=== PATIENT | male | born 1950 | race Caucasian/White ===

== ENCOUNTER 2016-08-12 04:27 | Inpatient (IN) | payer MEDICARE ==
[2016-08-12] MEDS ORDERED: Ondansetron 4 MG/2 ML SDV IVPUSH ONE (05:00)
[2016-08-12] MEDS ORDERED: Sodium Chloride 0.9% 1,000 ML IV SCH (05:00)
[2016-08-12] MEDS ORDERED: Piperacillin/Tazobactam 4.5 GM in Sodium Chloride 0.9% 100 ML IV STA (07:04)
[2016-08-12] MEDS ORDERED: Lactated Ringers 1,000 ML IV SCH (07:15)
[2016-08-12] MEDS ORDERED: HYDROmorphone 1 MG/ML Syringe IVPUSH ONE (07:16)
--- NOTE | 2016-08-12 07:16 | EDM.PDOC ---
ED HPI GENERAL MEDICAL PROBLEM - General Chief Complaint: General Stated Complaint: VOMITING Time Seen by Provider: 08/12/16 06:20 Source of Information: Reports: Patient History Limitations: Reports: No Limitations - History of Present Illness INITIAL COMMENTS - FREE TEXT/NARRATIVE: History of present illness: [65-year-old male presenting with nausea and vomiting and abdominal pain that started on Wednesday. He's not been to keep much down since been trying to keep Jell-O down. Subjectively he may have had some fever and chills. Abdominal pain is primarily epigastric extremity to his vomiting. He has no constipation or diarrhea, cold symptoms. ] Review of systems: As per history of present illness and below otherwise all systems reviewed and negative. Past medical history: As per history of present illness and as reviewed below otherwise noncontributory. Surgical history: As per history of present illness and as reviewed below otherwise noncontributory. Social history: No reported history of drug or alcohol abuse. Family history: As per history of present illness and as reviewed below otherwise noncontributory. Physical exam: HEENT: Atraumatic, normocephalic, pupils reactive, negative for conjunctival pallor or scleral icterus, mucous membranes moist, throat clear, neck supple, nontender, trachea midline. Lungs: Clear to auscultation, breath sounds equal bilaterally, chest nontender. Heart: S1S2, regular, negative for clicks, rubs, or JVD. Abdomen: Soft, nondistended, he does have epigastric pain on palpation but also right lower quadrant pain which seems to be more severe than his epigastric although he primarily complains of epigastric pain.. Negative for masses or hepatosplenomegaly. Negative for costovertebral tenderness. Pelvis: Stable nontender. Genitourinary: Deferred. Rectal: Deferred. Extremities: Atraumatic, negative for cords or calf pain. Neurovascular unremarkable. Neuro: Awake, alert, oriented. Cranial nerves II through XII unremarkable. Cerebellum unremarkable. Motor and sensory unremarkable throughout. Exam nonfocal. Diagnostics: [Abdominal pelvic CT is showing a retrocecal appendicitis. He does have an elevated white count with a left shift and he spiked a fever while here I did do blood cultures prior to knowing the results of the CT.] Therapeutics: [Patient is receiving IV fluids and I'm giving him IV Zosyn] Impression: [Acute appendicitis] Plan: [Dr. Hernandez has been contacted and is coming in for surgical management.] Definitive disposition and diagnosis as appropriate pending reevaluation and review of above. Abdomen Pain Score (Numeric/FACES): 3 - Related Data Allergies Allergy/AdvReac Type Severity Reaction Status Date / Time No Known Allergies Allergy Verified 08/12/16 04:46 Home Meds: Home Meds Metoprolol Succinate 100 mg PO BID 08/12/16 [History] Multivitamin [Multi-Vitamin Daily] 1 tab PO DAILY 08/12/16 [History] Past Medical History Cardiovascular History: Reports: Hypertension - Infectious Disease History Infectious Disease History: Reports: Chicken Pox - Past Surgical History Musculoskeletal Surgical History: Reports: Hip Replacement Dermatological Surgical History: Reports: Skin Biopsy Social & Family History - Tobacco Use Smoking Status *Q: Never Smoker - Caffeine Use Caffeine Use: Reports: Soda, Tea - Recreational Drug Use Recreational Drug Use: No ED ROS GENERAL - Review of Systems Review Of Systems: ROS reveals no pertinent complaints other than HPI. ED EXAM, GENERAL - Physical Exam Exam: See Below Course - Vital Signs Last Recorded V/S: Last Vital Signs Temp 38.7 C H 08/12/16 06:08 Pulse 100 08/12/16 06:08 Resp 16 08/12/16 06:08 BP 110/63 08/12/16 06:08 Pulse Ox 91 L 08/12/16 06:08 - Orders/Labs/Meds Orders: Active Orders 24 hr Category Date Time Status Abdomen Pelvis wo Cont [CT] Stat Exams 08/12/16 06:21 Taken Chest 1V Frontal [CR] Stat Exams 08/12/16 06:21 Taken CULTURE BLOOD [BC] Stat Lab 08/12/16 06:30 Received CULTURE BLOOD [BC] Stat Lab 08/12/16 06:40 Received LACTIC ACID [CHEM] Stat Lab 08/12/16 06:30 Received UA W/MICROSCOPIC [URIN] Stat Lab 08/12/16 04:56 Uncollected Lactated Ringers [Ringers, Lactated] 1,000 ml Med 08/12/16 07:15 Ordered IV ASDIRECTED Piperacillin/Tazobactam [Zosyn] 4.5 gm Med 08/12/16 07:04 Ordered Sodium Chloride 0.9% [Normal Saline] 100 ml IV NOW Medication Orders Piperacillin Sod/Tazobactam (Sod 4.5 gm/ Sodium Chloride) 100 mls @ 200 mls/hr IV NOW STA Stop: 08/12/16 07:33 Lactated Ringer's (Ringers, Lactated) 1,000 mls @ 250 mls/hr IV ASDIRECTED [facility] Labs: Laboratory Tests 08/12/16 08/12/16 Range/Units 04:56 04:56 WBC 14.4 H (4.5-11.0) K/uL RBC 5.07 (4.30-5.90) M/uL Hgb 16.1 H (12.0-15.0) g/dL Hct 48.0 (40.0-54.0) % MCV 95 (80-98) fL MCH 32 H (27-31) pg MCHC 34 (32-36) % Plt Count 64 L (150-400) K/uL Add Manual Diff Yes Neutrophils % (Manual) 74 H (36-66) % Band Neutrophils % 23 H (5-11) % Lymphocytes % (Manual) 1 L (24-44) % Monocytes % (Manual) 2 (2-6) % Sodium 139 L (140-148) mmol/L Potassium 3.5 L (3.6-5.2) mmol/L Chloride 103 (100-108) mmol/L Carbon Dioxide 27 (21-32) mmol/L Anion Gap 12.5 (5.0-14.0) mmol/L BUN 33 H (7-18) mg/dL Creatinine 2.0 H (0.8-1.3) mg/dL Est Cr Clr Drug Dosing 42.81 mL/min Estimated GFR (MDRD) 34 L (>60) Glucose 98 (74-106) mg/dL Calcium 8.8 (8.5-10.1) mg/dL Total Bilirubin 3.4 H (0.2-1.0) mg/dL AST 41 H (15-37) U/L ALT 59 (12-78) U/L Alkaline Phosphatase 162 H (46-116) U/L Total Protein 6.5 (6.4-8.2) g/dL Albumin 3.1 L (3.4-5.0) g/dL Globulin 3.4 (2.3-3.5) g/dL Albumin/Globulin Ratio 0.9 L (1.2-2.2) Meds: Medications Generic Name Dose Route Start Last Admin Trade Name Freq PRN Reason Stop Dose Admin Piperacillin Sod/Tazobactam 100 mls @ 200 mls/hr 08/12/16 07:04 Sod 4.5 gm/ Sodium Chloride IV 08/12/16 07:33 NOW STA Lactated Ringer's 1,000 mls @ 250 mls/hr 08/12/16 07:15 Ringers, Lactated IV ASDIRECTED [facility] Discontinued Medications Generic Name Dose Route Start Last Admin Trade Name Freq PRN Reason Stop Dose Admin Sodium Chloride 1,000 mls @ 500 mls/hr 08/12/16 05:00 08/12/16 05:03 Normal Saline IV 500 mls/hr ASDIRECTED [facility] Administration Ondansetron HCl 4 mg 08/12/16 05:00 08/12/16 05:04 Zofran IVPUSH 08/12/16 05:01 4 mg ONETIME ONE Administration Departure - Departure Time of Disposition: 07:15 Disposition: Admitted As Inpatient 66 Condition: Fair Clinical Impression: Acute appendicitis Qualifiers: Acute appendicitis type: with localized peritonitis Qualified Code(s): K35.3 - Acute appendicitis with localized peritonitis - Discharge Information Forms: ED Department Discharge - My Orders Last 24 Hours: My Active Orders 08/12/16 04:56 UA W/MICROSCOPIC [URIN] Stat 08/12/16 06:21 Abdomen Pelvis wo Cont [CT] Stat Chest 1V Frontal [CR] Stat 08/12/16 06:30 CULTURE BLOOD [BC] Stat LACTIC ACID [CHEM] Stat 08/12/16 06:40 CULTURE BLOOD [BC] Stat 08/12/16 07:04 Piperacillin/Tazobactam [Zosyn] 4.5 gm Sodium Chloride 0.9% [Normal Saline] 100 ml IV NOW 08/12/16 07:15 Lactated Ringers [Ringers, Lactated] 1,000 ml IV ASDIRECTED - Assessment/Plan Last 24 Hours: My Active Orders 08/12/16 04:56 UA W/MICROSCOPIC [URIN] Stat 08/12/16 06:21 Abdomen Pelvis wo Cont [CT] Stat Chest 1V Frontal [CR] Stat 08/12/16 06:30 CULTURE BLOOD [BC] Stat LACTIC ACID [CHEM] Stat 08/12/16 06:40 CULTURE BLOOD [BC] Stat 08/12/16 07:04 Piperacillin/Tazobactam [Zosyn] 4.5 gm Sodium Chloride 0.9% [Normal Saline] 100 ml IV NOW 08/12/16 07:15 Lactated Ringers [Ringers, Lactated] 1,000 ml IV ASDIRECTED
[2016-08-12] MEDS ORDERED: Piperacillin/Tazobactam 4.5 GM in Sodium Chloride 0.9% 100 ML IV ONE (07:30)
[2016-08-12] MEDS ORDERED: Metoprolol Succinate 50 MG Tab.ER PO ONE ×2 (08:23→09:22)
[2016-08-12] MEDS ORDERED: Bupivacaine 0.5% 50 ML MDV ONE (08:46)
[2016-08-12] MEDS ORDERED: Lidocaine 1% with EPINEPHrine 1:100,000 50 ML MDV ONE (08:46)
[2016-08-12] MEDS ORDERED: HYDROmorphone/Normal Saline 15 MG/30 ML PCA IV PRN (08:57)
[2016-08-12] MEDS ORDERED: Naloxone 0.4 MG/ML SDV IVPUSH PRN (08:57)
[2016-08-12] MEDS ORDERED: Metoprolol Tartrate 50 MG Tab PO ONE (09:06)
--- NOTE | 2016-08-12 09:14 | CR ---
Chest 1V Frontal HISTORY: fever COMPARISON: None FINDINGS: Lungs appear clear and normally aerated. Cardiomediastinal silhouette is within normal limits. No va scular redistribution or pleural fluid can be seen. There are small anterolateral osteoids along the thoracic spine. IMPRESSION: No acute cardiopulmonary disease is identified.
[2016-08-12] MEDS ORDERED: fentaNYL 250 MCG/5 ML SDV ONE (09:20)
[2016-08-12] MEDS ORDERED: Ondansetron 4 MG/2 ML SDV ONE (09:21)
[2016-08-12] MEDS ORDERED: Neostigmine Methylsulfate 1 MG/ML 5 ML Syringe ONE (09:21)
[2016-08-12] MEDS ORDERED: Dexamethasone 4 MG/ML SDV ONE (09:21)
[2016-08-12] MEDS ORDERED: Propofol 200 MG/20 ML SDV ONE (09:21)
[2016-08-12] MEDS ORDERED: Rocuronium 50 MG/5 ML Vial ONE (09:21)
[2016-08-12] MEDS ORDERED: Lactated Ringers 1,000 ML ONE (09:53)
[2016-08-12] MEDS ORDERED: fentaNYL 100 MCG/2 ML SDV ONE (10:29)
[2016-08-12] MEDS: D5 1/2 NS w/ 20 mEq/L KCl 1,000 ML IV SCH ×2 (13:23→19:39)
[2016-08-12] MEDS: Piperacillin/Tazobactam/Dext 3.375 GM in Premix Bag 1 BAG IV SCH ×2 (14:48→21:44)
[2016-08-12] MEDS: Ondansetron 4 MG/2 ML SDV IVPUSH PRN (17:53)
--- NOTE | 2016-08-12 18:25 | PCM.CONS ---
H&P History of Present Illness - General Date of Service: 08/12/16 Source of Information: Patient, Family, Provider History Limitations: Reports: No Limitations - History of Present Illness Initial Comments - Free Text/Narative: Tuan presented to the emergency room this morning with 2 days of abdominal pain, vomiting and diarrhea as well as new confusion as of the morning of admission. I was asked to see him by DR Alvarenga Re: Sepsis management. Tuan reports initial onset of abdominal pain 2 days prior to presentation. This was a central abdominal pain that was followed shortly thereafter by diarrhea and vomiting. He suspected that he had food poisoning and did not immediately seek intervention. This cramping abdominal pain initially was mild but progressed to the point that it was moderate or severe. He did not take anything at home. He lost his appetite. No obvious triggers to make the pain worse and it seemed to come and go. He had subjective fevers and chills at home. This morning his noted that he was weak, diaphoretic and confused and drug him in for further evaluation. Workup in the emergency room suggested acute appendicitis with evidence for sepsis. He was taken to the operating room for surgical intervention. Abdomen Pain Score (Numeric/FACES): 7 - Related Data Allergies/Adverse Reactions: Allergies Allergy/AdvReac Type Severity Reaction Status Date / Time No Known Allergies Allergy Verified 08/12/16 04:46 Home Medications: Home Meds Metoprolol Succinate 100 mg PO BID 08/12/16 [History] Multivitamin [Multi-Vitamin Daily] 1 tab PO DAILY 08/12/16 [History] Past Medical History Cardiovascular History: Reports: Hypertension - Infectious Disease History Infectious Disease History: Reports: Chicken Pox - Past Surgical History Musculoskeletal Surgical History: Reports: Hip Replacement Dermatological Surgical History: Reports: Skin Biopsy Social & Family History - Family History Cardiac: Denies: CAD - Tobacco Use Smoking Status *Q: Never Smoker - Caffeine Use Caffeine Use: Reports: Coffee, Soda - Alcohol Use Days Per Week of Alcohol Use: 2 Number of Drinks Per Day: 1 Total Drinks Per Week: 2 - Recreational Drug Use Recreational Drug Use: No H&P Review of Systems - Review of Systems: Review Of Systems: See Below Free Text/Narrative: A complete 12 point review of systems was obtained. Pertinent positives and negatives are noted in the history of present illness. All other systems were reviewed and were negative except as noted. Exam - Exam Exam: See Below - Vital Signs Vital Signs: Last Vital Signs Temp 36.0 C 08/12/16 13:45 Pulse 58 L 08/12/16 13:45 Resp 16 08/12/16 13:45 BP 113/65 08/12/16 13:45 Pulse Ox 90 L 08/12/16 14:58 Weight: 102.965 kg - Exam Quality Assessment: Supplemental Oxygen General: Alert, Oriented, Cooperative, Mild Distress HEENT: Conjunctiva Clear. No: Mucosa Moist & [place] (dry), Scleral Icterus Neck: Supple, Trachea Midline. No: Lymphadenopathy Lungs: Clear to Auscultation, Normal Respiratory Effort Cardiovascular: Regular Rate, Regular Rhythm. No: Systolic Murmur Abdomen: Normal Bowel Sounds, Soft, Tenderness. No: Distention Back Exam: Normal Inspection, Full Range of Motion Extremities: Normal Inspection. No: Cyanosis, Edema Peripheral Pulses: 2+: Dorsalis Pedis (L), Dorsalis Pedis (R) Skin: Warm, Dry, Intact Neuro Extensive - Mental Status: Alert, Oriented x3, Nl Response to Commands Neuro Extensive - Motor, Sensory, Reflexes: CN II-XII Intact. No: Dysarthria, Abnormal Motor, Tremor Psychiatric: Alert, Normal Affect - Patient Data Lab Results Last 24 hrs: Laboratory Results - last 24 hr 08/12/16 08/12/16 08/12/16 Range/Units 11:56 16:00 16:00 WBC 20.9 H (4.5-11.0) K/uL RBC 4.57 (4.30-5.90) M/uL Hgb 14.4 (12.0-15.0) g/dL Hct 44.0 (40.0-54.0) % MCV 96 (80-98) fL MCH 32 H (27-31) pg MCHC 33 (32-36) % Plt Count 50 L (150-400) K/uL Lactic Acid 2.2 H (0.4-2.0) mmol/L Urine Color Yellow Urine Appearance Slightly cloudy Urine pH 5.0 (4.5-8.0) Ur Specific [place] 1.020 (1.008-1.030) Urine Protein Negative (NEGATIVE) mg/dL Urine Glucose (UA) Normal (NEGATIVE) mg/dL Urine Ketones 15 H (NEGATIVE) mg/dL Urine Occult Blood Moderate (NEGATIVE) Urine Nitrite Negative (NEGAITVE) Urine Bilirubin Small (NEGATIVE) Urine Urobilinogen 1 (NORMAL) mg/dL Ur Leukocyte Esterase Negative (NEGATIVE) Urine RBC 10-20 H (0-5) Urine WBC 0-5 (0-5) Ur Epithelial Cells Moderate Amorphous Sediment Few Urine Bacteria Moderate Urine Mucus Few Result Diagrams: 08/12/16 16:00 08/12/16 04:56 Imaging Impressions Last 24 hrs: CT scan of the abdomen and pelvis - images personally reviewed - there is evidence for acute appendicitis Consult PN Assessment/Plan POD#: 0 (1) Sepsis SNOMED Code(s): 64788505 Code(s): A41.9 - SEPSIS, UNSPECIFIED ORGANISM Current Visit: Yes Qualifiers: Sepsis type: sepsis due to unspecified organism Qualified Code(s): A41.9 - Sepsis, unspecified organism (2) Acute kidney injury SNOMED Code(s): 09989150 Code(s): N17.9 - ACUTE KIDNEY FAILURE, UNSPECIFIED Current Visit: Yes (3) Acute appendicitis SNOMED Code(s): 50140741 Code(s): K35.80 - UNSPECIFIED ACUTE APPENDICITIS Current Visit: Yes Qualifiers: Acute appendicitis type: with localized peritonitis Qualified Code(s): K35.3 - Acute appendicitis with localized peritonitis Problem List Initiated/Reviewed/Updated: Yes Plan: ASSESSMENT AND PLAN - Acute appendicitis with sepsis syndrome - status post appendectomy. Evidence for sepsis included fever, tachycardia, hypotension, acute kidney injury and lactic acidosis. Clinically patient is improving with stable to slightly improved blood pressures. Heart rate has improved. Lactic acid is trending down. I suspect his low platelets and elevated bilirubin are component of gram- negative sepsis and should improve over the next couple of days. He is on appropriate antibiotics at this time. Unless he has deterioration in blood pressure or rise in his heart rate that don't believe additional fluid challenges are needed at this time. -Continue current antibiotics -Blood cultures if he spikes a fever -CBC and BMP in the morning -Fluid challenges if he becomes hypotensive -Hold beta bon until blood pressure improves Thank you for the interesting consultation and please contact me if there are any concerns about unstable vital signs, fever or deterioration of patient condition. Isaac Herbert M.D. Requesting Provider: Dr Alvarenga Date Consult Requested: 08/12/16 Reason for Consult: Sepsis Patient History Reviewed: Yes Admission H&P Reviewed: No (Not available) Notified Requestor: Yes Time Spent (in minutes): 45
[2016-08-12] MEDS: Metoprolol Succinate 50 MG Tab.ER PO SCH (20:53)
[2016-08-13] MEDS: Piperacillin/Tazobactam/Dext 3.375 GM in Premix Bag 1 BAG IV SCH ×4 (02:29→19:58)
[2016-08-13] MEDS: D5 1/2 NS w/ 20 mEq/L KCl 1,000 ML IV SCH ×2 (02:37→10:16)
[2016-08-13] MEDS ORDERED: Piperacillin/Tazobactam 3.375 GM in Sodium Chloride 0.9% 50 ML IV SCH (06:00)
--- NOTE | 2016-08-13 06:18 | PCM.SURGPN ---
- General Info Date of Service: 08/13/16 Date of Surgery/Procedure: 08/12/16 POD#: 1 Post-Op Diagnosis: Gangrenous retrocecal appendicitis Functional Status: Reports: pain controlled, tolerating diet, ambulating, urinating ([place]), incentive spirometry - Review of Systems General: Reports: No Symptoms HEENT: Reports: no symptoms Pulmonary: Reports: no symptoms Cardiovascular: Reports: No Symptoms Gastrointestinal: Reports: No symptoms, Flatus, Other (Had small BM). Denies: Constipation Genitourinary: Reports: no symptoms Musculoskeletal: Reports: no symptoms Skin: Reports: no symptoms Neurological: Reports: No Symptoms Psychiatric: Reports: no symptoms - Patient Data Vitals - most recent: Last Vital Signs Temp 97.1 F 08/13/16 02:32 Pulse 60 08/13/16 02:32 Resp 18 08/13/16 02:32 BP 127/75 08/13/16 02:32 Pulse Ox 95 08/13/16 02:32 Weight - most recent: 227 lb I&O - last 24 hours: Intake & Output 08/12/16 08/12/16 08/13/16 14:59 22:59 06:59 Intake Total 1271 1572 Output Total 150 600 300 Balance -174 922 3120 Lab Results last 24 hrs: Laboratory Results - last 24 hr 08/12/16 08/12/16 08/12/16 Range/Units 11:56 16:00 16:00 WBC 20.9 H (4.5-11.0) K/uL RBC 4.57 (4.30-5.90) M/uL Hgb 14.4 (12.0-15.0) g/dL Hct 44.0 (40.0-54.0) % MCV 96 (80-98) fL MCH 32 H (27-31) pg MCHC 33 (32-36) % Plt Count 50 L (150-400) K/uL Sodium (140-148) mmol/L Potassium (3.6-5.2) mmol/L Chloride (100-108) mmol/L Carbon Dioxide (21-32) mmol/L Anion Gap (5.0-14.0) mmol/L BUN (7-18) mg/dL Creatinine (0.8-1.3) mg/dL Est Cr Clr Drug Dosing mL/min Estimated GFR (MDRD) (>60) Glucose (74-106) mg/dL Lactic Acid 2.2 H (0.4-2.0) mmol/L Calcium (8.5-10.1) mg/dL Total Bilirubin (0.2-1.0) mg/dL AST (15-37) U/L ALT (12-78) U/L Alkaline Phosphatase (46-116) U/L Total Protein (6.4-8.2) g/dL Albumin (3.4-5.0) g/dL Globulin (2.3-3.5) g/dL Albumin/Globulin Ratio (1.2-2.2) Urine Color Yellow Urine Appearance Slightly cloudy Urine pH 5.0 (4.5-8.0) Ur Specific [place] 1.020 (1.008-1.030) Urine Protein Negative (NEGATIVE) mg/dL Urine Glucose (UA) Normal (NEGATIVE) mg/dL Urine Ketones 15 H (NEGATIVE) mg/dL Urine Occult Blood Moderate (NEGATIVE) Urine Nitrite Negative (NEGAITVE) Urine Bilirubin Small (NEGATIVE) Urine Urobilinogen 1 (NORMAL) mg/dL Ur Leukocyte Esterase Negative (NEGATIVE) Urine RBC 10-20 H (0-5) Urine WBC 0-5 (0-5) Ur Epithelial Cells Moderate Amorphous Sediment Few Urine Bacteria Moderate Urine Mucus Few 08/13/16 08/13/16 Range/Units 05:05 05:05 WBC 15.6 H (4.5-11.0) K/uL RBC 4.26 L (4.30-5.90) M/uL Hgb 13.3 (12.0-15.0) g/dL Hct 41.2 (40.0-54.0) % MCV 97 (80-98) fL MCH 31 (27-31) pg MCHC 32 (32-36) % Plt Count 46 L (150-400) K/uL Sodium 138 L (140-148) mmol/L Potassium 4.8 (3.6-5.2) mmol/L Chloride 106 (100-108) mmol/L Carbon Dioxide 27 (21-32) mmol/L Anion Gap 9.8 (5.0-14.0) mmol/L BUN 26 H (7-18) mg/dL Creatinine 1.2 (0.8-1.3) mg/dL Est Cr Clr Drug Dosing 71.35 mL/min Estimated GFR (MDRD) > 60 (>60) Glucose 161 H (74-106) mg/dL Lactic Acid (0.4-2.0) mmol/L Calcium 8.3 L (8.5-10.1) mg/dL Total Bilirubin 1.4 H D (0.2-1.0) mg/dL AST 50 H (15-37) U/L ALT 68 (12-78) U/L Alkaline Phosphatase 59 (46-116) U/L Total Protein 5.4 L (6.4-8.2) g/dL Albumin 2.2 L (3.4-5.0) g/dL Globulin 3.2 (2.3-3.5) g/dL Albumin/Globulin Ratio 0.7 L (1.2-2.2) Urine Color Urine Appearance Urine pH (4.5-8.0) Ur Specific [place] (1.008-1.030) Urine Protein (NEGATIVE) mg/dL Urine Glucose (UA) (NEGATIVE) mg/dL Urine Ketones (NEGATIVE) mg/dL Urine Occult Blood (NEGATIVE) Urine Nitrite (NEGAITVE) Urine Bilirubin (NEGATIVE) Urine Urobilinogen (NORMAL) mg/dL Ur Leukocyte Esterase (NEGATIVE) Urine RBC (0-5) Urine WBC (0-5) Ur Epithelial Cells Amorphous Sediment Urine Bacteria Urine Mucus Med Orders - Current: Current Medications Hydromorphone HCl (Dilaudid Precision [employer] Grinder Operator 15 Mg In Ns 30 Ml) 0 mg IV ASDIRECTED PRN; Protocol PRN Reason: Pain Last Admin: 08/12/16 09:03 Dose: 0.3 mg Lactated Ringer's (Ringers, Lactated) 1,000 mls @ 250 mls/hr IV ASDIRECTED [facility] Potassium Chloride/Dextrose/Sod Cl (D5 1/2 Ns W/ 20 Meq/L Kcl) 1,000 mls @ 150 mls/hr IV ASDIRECTED [facility] Last Admin: 08/13/16 02:37 Dose: 150 mls/hr Piperacillin Sod/Tazobactam (Sod 3.375 gm/ Sodium Chloride) 50 mls @ 100 mls/ hr IV Q6H [facility] Metoprolol Succinate (Toprol Xl) 100 mg PO BID [facility] Last Admin: 08/12/16 20:53 Dose: 100 mg Multivitamins/Minerals (Thera M Plus) 1 tab PO DAILY [facility] Naloxone HCl (Narcan) 0.1 mg IVPUSH Q5M PRN PRN Reason: Respiratory Distress Ondansetron HCl (Zofran) 4 mg IVPUSH Q6H PRN PRN Reason: Nausea/Vomiting Last Admin: 08/12/16 17:53 Dose: 4 mg Discontinued Medications Bupivacaine HCl (Marcaine 0.5%) Confirm Administered Dose 50 ml .ROUTE .STK-MED ONE Stop: 08/12/16 08:47 Last Admin: 08/12/16 10:06 Dose: 10 ml Dexamethasone (Dexamethasone) Confirm Administered Dose 4 mg .ROUTE .STK-MED ONE Stop: 08/12/16 09:22 Fentanyl (Sublimaze) Confirm Administered Dose 250 mcg .ROUTE .STK-MED ONE Stop: 08/12/16 09:21 Fentanyl (Sublimaze) Confirm Administered Dose 100 mcg .ROUTE .STK-MED ONE Stop: 08/12/16 10:30 Glycopyrrolate () Confirm Administered Dose 1 mg .ROUTE .STK-MED ONE Stop: 08/12/16 09:22 Hydromorphone HCl (Dilaudid) 1 mg IVPUSH ONETIME ONE Stop: 08/12/16 07:17 Last Admin: 08/12/16 09:25 Dose: Not Given Sodium Chloride (Normal Saline) 1,000 mls @ 500 mls/hr IV ASDIRECTED [facility] Last Admin: 08/12/16 05:03 Dose: 500 mls/hr Piperacillin Sod/Tazobactam (Sod 4.5 gm/ Sodium Chloride) 100 mls @ 200 mls/hr IV NOW STA Stop: 08/12/16 07:33 Last Admin: 08/12/16 14:33 Dose: Not Given Piperacillin Sod/Tazobactam (Sod 4.5 gm/ Sodium Chloride) 100 mls @ 200 mls/hr IV ONETIME ONE Stop: 08/12/16 07:59 Last Admin: 08/12/16 07:41 Dose: 200 mls/hr Lactated Ringer's (Ringers, Lactated) Confirm Administered Dose 1,000 mls @ as directed .ROUTE .STK-MED ONE Stop: 08/12/16 09:54 Piperacillin/Tazobactam/ (Dextrose 3.375 gm/ Premix) 50 mls @ 100 mls/hr IV Q6H [facility] Stop: 08/13/16 02:29 Last Admin: 08/13/16 02:29 Dose: 100 mls/hr Lidocaine/Epinephrine (Xylocaine 1% With Epinephrine 1:100,000) Confirm Administered Dose 50 ml .ROUTE .STK-MED ONE Stop: 08/12/16 08:47 Last Admin: 08/12/16 10:07 Dose: 10 ml Metoprolol Succinate (Toprol Xl) 100 mg PO ONETIME ONE Stop: 08/12/16 08:24 Last Admin: 08/12/16 09:18 Dose: 50 mg Metoprolol Succinate (Toprol Xl) 50 mg PO ONETIME ONE Stop: 08/12/16 09:23 Last Admin: 08/12/16 09:24 Dose: Not Given Metoprolol Tartrate (Lopressor) 50 mg PO ONETIME ONE Stop: 08/12/16 09:07 Last Admin: 08/12/16 14:33 Dose: Not Given Neostigmine Methylsulfate (Neostigmine) Confirm Administered Dose 5 mg .ROUTE .STK-MED ONE Stop: 08/12/16 09:22 Ondansetron HCl (Zofran) 4 mg IVPUSH ONETIME ONE Stop: 08/12/16 05:01 Last Admin: 08/12/16 05:04 Dose: 4 mg Ondansetron HCl (Zofran) Confirm Administered Dose 4 mg .ROUTE .STK-MED ONE Stop: 08/12/16 09:22 Propofol (Diprivan 20 Ml) Confirm Administered Dose 200 mg .ROUTE .STK-MED ONE Stop: 08/12/16 09:22 Rocuronium [place] (Zemuron) Confirm Administered Dose 50 mg .ROUTE .STK-MED ONE Stop: 08/12/16 09:22 - Exam Wound/Incisions: healing well, no drainage Quality Assessment: urine catheter General: alert, oriented, cooperative, no acute distress Lungs: Clear to auscultation, Normal respiratory effort Cardiovascular: Regular Rate, Regular Rhythm Abdomen: bowel sounds present, soft, no tenderness, no distension Extremities: no edema Skin: warm, dry, intact Neurological: no new focal deficit Psy/Mental Status: alert, normal affect, normal mood - Problem List & Annotations (1) Sepsis SNOMED Code(s): 80031731 Code(s): A41.9 - SEPSIS, UNSPECIFIED ORGANISM Status: Acute Current Visit : Yes Qualifiers: Sepsis type: sepsis due to unspecified organism Qualified Code(s): A41.9 - Sepsis, unspecified organism - Problem List Review Problem List Initiated/Reviewed/Updated: Yes - My Orders Last 24 Hours: Active Orders 24 hr Category Date Time Status Piperacillin/Tazobactam [Zosyn] 3.375 gm Med 08/13/16 06:15 Ordered Sodium Chloride 0.9% [Normal Saline] 50 ml IV Q6H Medication Orders Hydromorphone HCl (Dilaudid [employer]ision [employer] Grinder Operator 15 Mg In Ns 30 Ml) 0 mg IV ASDIRECTED PRN; Protocol PRN Reason: Pain Last Admin: 08/12/16 09:03 Dose: 0.3 mg Lactated Ringer's (Ringers, Lactated) 1,000 mls @ 250 mls/hr IV ASDIRECTED [facility] Potassium Chloride/Dextrose/Sod Cl (D5 1/2 Ns W/ 20 Meq/L Kcl) 1,000 mls @ 150 mls/hr IV ASDIRECTED [facility] Last Admin: 08/13/16 02:37 Dose: 150 mls/hr Infusion: 08/13/16 02:20 Dose: 150 mls/hr Admin: 08/12/16 19:39 Dose: 150 mls/hr Infusion: 08/12/16 19:39 Dose: 150 mls/hr Admin: 08/12/16 13:23 Dose: 150 mls/hr Piperacillin Sod/Tazobactam (Sod 3.375 gm/ Sodium Chloride) 50 mls @ 100 mls/ hr IV Q6H [facility] Metoprolol Succinate (Toprol Xl) 100 mg PO BID [facility] Last Admin: 08/12/16 20:53 Dose: 100 mg Multivitamins/Minerals (Thera M Plus) 1 tab PO DAILY [facility] Naloxone HCl (Narcan) 0.1 mg IVPUSH Q5M PRN PRN Reason: Respiratory Distress Ondansetron HCl (Zofran) 4 mg IVPUSH Q6H PRN PRN Reason: Nausea/Vomiting Last Admin: 08/12/16 17:53 Dose: 4 mg - Assessment Assessment (Free Text/Narrative):: Improved, but PLTs down to 46K. Good UOP. WBC is down from peak. Had small BM. - Plan Plan (Free Text/Narrative):: D/C Chery. Continue Zosyn.
--- NOTE | 2016-08-13 07:33 | OR ---
DATE OF PROCEDURE: 08/12/2016 PREOPERATIVE DIAGNOSIS: Acute retrocecal appendicitis. POSTOPERATIVE DIAGNOSIS: Acute retrocecal gangrenous appendicitis. PROCEDURE: Laparoscopic appendectomy. ANESTHESIA: General endotracheal. INDICATION: This 65-year-old white male complains of two days of abdominal pain with nausea and vomiting. The pain and vomiting came on about the same time. The pain started in the periumbilical area and moved to the right lower quadrant. He also complained of epigastric pain. He presents to the emergency room where he was found to have a temperature of 101.6. He was tender in the abdomen, especially in the right lower quadrant. CT scan of the abdomen and pelvis was consistent with acute retrocecal appendicitis. There is no evidence of perforation. He had a bilirubin of 3.4, albumin of 3.1, and a lactic acid of 3.1. He is taken to the operating room for a laparoscopic appendectomy. He received 4.5 g of Zosyn preoperatively. I counseled him for surgery including risks and alternatives, and he gave his informed consent to proceed. DESCRIPTION OF PROCEDURE: After adequate general endotracheal anesthesia was obtained, a Gottlieb catheter was placed. The leg compression stockings were in place and used during the entire procedure. His abdomen was prepped and draped in the usual sterile fashion. Time- out was held. An infraumbilical semicircular incision was made. Under direct vision, a 12- mm port was placed in the abdomen through this incision using the Optiview technique. The camera was introduced into the abdomen and the abdomen was insufflated to a pressure of 20 mmHg with carbon dioxide. No evidence of intraabdominal injury was seen. Under direct vision, 12 mm ports were placed in the right upper and left lower quadrants. There was no fluid in the peritoneal cavity. The appendix was noted to be tucked down retrocecal in the right lower quadrant. We had to dissected the peritoneal reflection free. We were able to then mobilize the appendix up. The base of the appendix was divided with the endoscopic DARLEEN using a blue load. The mesoappendix was divided with the endoscopic DARLEEN using white loads. The appendix was then placed in a sample retrieval bag and elevated up through the anterior abdominal wall via the right upper quadrant port site. It was delivered from the field. It should be noted that the appendix appeared gangrenous. The right upper quadrant port was reintroduced back in the abdomen. The right lower quadrant was irrigated and suctioned dry. All looked well. The fascial closure device was used to place 0 Vicryl stitch in the right upper and left lower quadrant fascial defects. They were not tied down until they were both placed. The infraumbilical port was then removed with a [id number] stitch of 0 Vicryl used to close this fascial defect. Before tying the stitch down, we did evacuate as much CO2 as we could from the abdomen. Lidocaine 1% plain in a 50:50 mix with 0.5% Marcaine with epinephrine was infiltrated about all incisions, The skin was approximated with 4-0 Vicryl subcuticular stitches. Dermabond was applied. The anesthesia was reversed. He was extubated and brought to the recovery room in fair condition. Rocael Alvarenga MD /[id number] MTDGilbert
[2016-08-13] MEDS: Multivitamins with Iron/Calcium/Folic Acid/Minerals Tab PO SCH (08:56)
[2016-08-13] MEDS: Metoprolol Succinate 50 MG Tab.ER PO SCH ×2 (08:57→19:59)
[2016-08-13] MEDS ORDERED: D5 1/2 NS w/ 20 mEq/L KCl 1,000 ML IV SCH (12:50)
[2016-08-13] MEDS ORDERED: Acetaminophen/HYDROcodone 325-5 MG Tab PO PRN (12:50)
--- NOTE | 2016-08-13 12:51 | PCM.CONSN ---
- General Info Date of Service: 08/13/16 Functional Status: Reports: pain controlled, tolerating diet, ambulating - Review of Systems General: Denies: Fever Gastrointestinal: Reports: Abdominal pain Systems Review Comment:: No acute events overnight. Pain has been well controlled. No pain meds in some 4 -5 hours. No fevers. Lactic acid trended down. Kidney function nearly back to normal. Tolerating full liquids. - Patient Data Vitals - most recent: Last Vital Signs Temp 36.9 C 08/13/16 11:03 Pulse 57 L 08/13/16 11:03 Resp 16 08/13/16 11:03 BP 137/79 08/13/16 11:03 Pulse Ox 94 L 08/13/16 11:03 Weight - most recent: 102.965 kg I&O - last 24 hours: Intake & Output 08/12/16 08/13/16 08/13/16 22:59 06:59 14:59 Intake Total 1271 1572 50 Output Total 600 300 Balance 671 1272 50 Lab Results last 24 hrs: Laboratory Results - last 24 hr 08/12/16 08/12/16 08/13/16 Range/Units 16:00 16:00 05:05 WBC 20.9 H 15.6 H (4.5-11.0) K/uL RBC 4.57 4.26 L (4.30-5.90) M/uL Hgb 14.4 13.3 (12.0-15.0) g/dL Hct 44.0 41.2 (40.0-54.0) % MCV 96 97 (80-98) fL MCH 32 H 31 (27-31) pg MCHC 33 32 (32-36) % Plt Count 50 L 46 L (150-400) K/uL Sodium (140-148) mmol/L Potassium (3.6-5.2) mmol/L Chloride (100-108) mmol/L Carbon Dioxide (21-32) mmol/L Anion Gap (5.0-14.0) mmol/L BUN (7-18) mg/dL Creatinine (0.8-1.3) mg/dL Est Cr Clr Drug Dosing mL/min Estimated GFR (MDRD) (>60) Glucose (74-106) mg/dL Lactic Acid 2.2 H (0.4-2.0) mmol/L Calcium (8.5-10.1) mg/dL Total Bilirubin (0.2-1.0) mg/dL AST (15-37) U/L ALT (12-78) U/L Alkaline Phosphatase (46-116) U/L Total Protein (6.4-8.2) g/dL Albumin (3.4-5.0) g/dL Globulin (2.3-3.5) g/dL Albumin/Globulin Ratio (1.2-2.2) 08/13/16 Range/Units 05:05 WBC (4.5-11.0) K/uL RBC (4.30-5.90) M/uL Hgb (12.0-15.0) g/dL Hct (40.0-54.0) % MCV (80-98) fL MCH (27-31) pg MCHC (32-36) % Plt Count (150-400) K/uL Sodium 138 L (140-148) mmol/L Potassium 4.8 (3.6-5.2) mmol/L Chloride 106 (100-108) mmol/L Carbon Dioxide 27 (21-32) mmol/L Anion Gap 9.8 (5.0-14.0) mmol/L BUN 26 H (7-18) mg/dL Creatinine 1.2 (0.8-1.3) mg/dL Est Cr Clr Drug Dosing 71.35 mL/min Estimated GFR (MDRD) > 60 (>60) Glucose 161 H (74-106) mg/dL Lactic Acid (0.4-2.0) mmol/L Calcium 8.3 L (8.5-10.1) mg/dL Total Bilirubin 1.4 H D (0.2-1.0) mg/dL AST 50 H (15-37) U/L ALT 68 (12-78) U/L Alkaline Phosphatase 59 (46-116) U/L Total Protein 5.4 L (6.4-8.2) g/dL Albumin 2.2 L (3.4-5.0) g/dL Globulin 3.2 (2.3-3.5) g/dL Albumin/Globulin Ratio 0.7 L (1.2-2.2) Med Orders - Current: Current Medications Hydrocodone Bitart/Acetaminophen ([place] 325-5 Mg) 1 tab PO Q4H PRN PRN Reason: Pain Lactated Ringer's (Ringers, Lactated) 1,000 mls @ 250 mls/hr IV ASDIRECTED [facility] Piperacillin/Tazobactam/ (Dextrose 3.375 gm/ Premix) 50 mls @ 100 mls/hr IV Q6H [facility] Last Admin: 08/13/16 08:05 Dose: 100 mls/hr Metoprolol Succinate (Toprol Xl) 100 mg PO BID [facility] Last Admin: 08/13/16 08:57 Dose: 100 mg Multivitamins/Minerals (Thera M Plus) 1 tab PO DAILY [facility] Last Admin: 08/13/16 08:56 Dose: 1 tab Naloxone HCl (Narcan) 0.1 mg IVPUSH Q5M PRN PRN Reason: Respiratory Distress Ondansetron HCl (Zofran) 4 mg IVPUSH Q6H PRN PRN Reason: Nausea/Vomiting Last Admin: 08/12/16 17:53 Dose: 4 mg Discontinued Medications Bupivacaine HCl (Marcaine 0.5%) Confirm Administered Dose 50 ml .ROUTE .STK-MED ONE Stop: 08/12/16 08:47 Last Admin: 08/12/16 10:06 Dose: 10 ml Dexamethasone (Dexamethasone) Confirm Administered Dose 4 mg .ROUTE .STK-MED ONE Stop: 08/12/16 09:22 Fentanyl (Sublimaze) Confirm Administered Dose 250 mcg .ROUTE .STK-MED ONE Stop: 08/12/16 09:21 Fentanyl (Sublimaze) Confirm Administered Dose 100 mcg .ROUTE .STK-MED ONE Stop: 08/12/16 10:30 Glycopyrrolate () Confirm Administered Dose 1 mg .ROUTE .STK-MED ONE Stop: 08/12/16 09:22 Hydromorphone HCl (Dilaudid) 1 mg IVPUSH ONETIME ONE Stop: 08/12/16 07:17 Last Admin: 08/12/16 09:25 Dose: Not Given Hydromorphone HCl (Dilaudid Grinder Operator 15 Mg In Ns 30 Ml) 0 mg IV ASDIRECTED PRN; Protocol PRN Reason: Pain Last Admin: 08/12/16 09:03 Dose: 0.3 mg Sodium Chloride (Normal Saline) 1,000 mls @ 500 mls/hr IV ASDIRECTED [facility] Last Admin: 08/12/16 05:03 Dose: 500 mls/hr Piperacillin Sod/Tazobactam (Sod 4.5 gm/ Sodium Chloride) 100 mls @ 200 mls/hr IV NOW STA Stop: 08/12/16 07:33 Last Admin: 08/12/16 14:33 Dose: Not Given Piperacillin Sod/Tazobactam (Sod 4.5 gm/ Sodium Chloride) 100 mls @ 200 mls/hr IV ONETIME ONE Stop: 08/12/16 07:59 Last Admin: 08/12/16 07:41 Dose: 200 mls/hr Lactated Ringer's (Ringers, Lactated) Confirm Administered Dose 1,000 mls @ as directed .ROUTE .STK-MED ONE Stop: 08/12/16 09:54 Potassium Chloride/Dextrose/Sod Cl (D5 1/2 Ns W/ 20 Meq/L Kcl) 1,000 mls @ 150 mls/hr IV ASDIRECTED [facility] Last Admin: 08/13/16 10:16 Dose: 150 mls/hr Piperacillin/Tazobactam/ (Dextrose 3.375 gm/ Premix) 50 mls @ 100 mls/hr IV Q6H [facility] Stop: 08/13/16 02:29 Last Admin: 08/13/16 02:29 Dose: 100 mls/hr Lidocaine/Epinephrine (Xylocaine 1% With Epinephrine 1:100,000) Confirm Administered Dose 50 ml .ROUTE .STK-MED ONE Stop: 08/12/16 08:47 Last Admin: 08/12/16 10:07 Dose: 10 ml Metoprolol Succinate (Toprol Xl) 100 mg PO ONETIME ONE Stop: 08/12/16 08:24 Last Admin: 08/12/16 09:18 Dose: 50 mg Metoprolol Succinate (Toprol Xl) 50 mg PO ONETIME ONE Stop: 08/12/16 09:23 Last Admin: 08/12/16 09:24 Dose: Not Given Metoprolol Tartrate (Lopressor) 50 mg PO ONETIME ONE Stop: 08/12/16 09:07 Last Admin: 08/12/16 14:33 Dose: Not Given Neostigmine Methylsulfate (Neostigmine) Confirm Administered Dose 5 mg .ROUTE .STK-MED ONE Stop: 08/12/16 09:22 Ondansetron HCl (Zofran) 4 mg IVPUSH ONETIME ONE Stop: 08/12/16 05:01 Last Admin: 08/12/16 05:04 Dose: 4 mg Ondansetron HCl (Zofran) Confirm Administered Dose 4 mg .ROUTE .STK-MED ONE Stop: 08/12/16 09:22 Propofol (Diprivan 20 Ml) Confirm Administered Dose 200 mg .ROUTE .STK-MED ONE Stop: 08/12/16 09:22 Rocuronium [place] (Zemuron) Confirm Administered Dose 50 mg .ROUTE .STK-MED ONE Stop: 08/12/16 09:22 - Exam Quality Assessment: No: supplemental oxygen General: alert, oriented, cooperative, no acute distress HEENT: Pupils equal Neck: supple Lungs: Normal respiratory effort Abdomen: soft, no distension Extremities: no edema, no cyanosis Skin: warm, dry Psy/Mental Status: alert, normal affect Consult PN Assessment/Plan POD#: 1 (1) Sepsis SNOMED Code(s): 31613128 Code(s): A41.9 - SEPSIS, UNSPECIFIED ORGANISM Current Visit: Yes Qualifiers: Sepsis type: sepsis due to unspecified organism Qualified Code(s): A41.9 - Sepsis, unspecified organism (2) Acute kidney injury SNOMED Code(s): 03370691 Code(s): N17.9 - ACUTE KIDNEY FAILURE, UNSPECIFIED Current Visit: Yes (3) Acute appendicitis SNOMED Code(s): 58683304 Code(s): K35.80 - UNSPECIFIED ACUTE APPENDICITIS Current Visit: Yes Qualifiers: Acute appendicitis type: with localized peritonitis Qualified Code(s): K35.3 - Acute appendicitis with localized peritonitis Problem List Initiated/Reviewed/Updated: Yes My Orders last 24 hours: My Active Orders 08/13/16 12:50 Acetaminophen/HYDROcodone [[place] 325-5 MG] 1 tab PO Q4H PRN D5 1/2 NS w/ 20 mEq/L KCl 1,000 ml IV ASDIRECTED Plan: ASSESSMENT AND PLAN - Acute appendicitis with sepsis syndrome - status post appendectomy. Clinically improved. Lactic acid level trended down and vital signs have stabilized. Cultures negative so far. -Continue current IV antibiotics while hospitalized -Blood cultures if he spikes a fever -CBC and BMP in the morning -Fluid challenges if he becomes hypotensive -Hold beta bon until blood pressure improves, likely tomorrow morning Isaac Herbert M.D.
[2016-08-13] MEDS: Ondansetron 4 MG/2 ML SDV IVPUSH PRN (18:48)
[2016-08-13] MEDS: oxyCODONE 5 MG Tab PO PRN (20:22)
[2016-08-14] MEDS: oxyCODONE 5 MG Tab PO PRN ×3 (00:24→09:57)
[2016-08-14] MEDS: Ondansetron 4 MG/2 ML SDV IVPUSH PRN (02:40)
[2016-08-14] MEDS: Piperacillin/Tazobactam/Dext 3.375 GM in Premix Bag 1 BAG IV SCH ×2 (02:40→08:05)
[2016-08-14 08:03] VITALS: BP 141/89
[2016-08-14] MEDS: Multivitamins with Iron/Calcium/Folic Acid/Minerals Tab PO SCH (08:04)
[2016-08-14] MEDS: Metoprolol Succinate 50 MG Tab.ER PO SCH (08:05)
--- NOTE | 2016-08-14 11:40 | PCM.DCSUM1 ---
Discharge Summary - Hospital Course Free Text/Narrative:: This 65 year old white male noted onset of abdominal pain about two days prior to admission. He came into our ER when it did not improve. He was found to have a fever of 101.6, be diffusely tender in his abdomen, greatest in his right lower quadrant with a WBC of 14,400. CT scan was consistent with acute retrocecal appendicitis. Of interest, he had an elevated lactic acid at 3.1, creatinine of 2.0, bun of 33, albumin of 3.1 and an elevated t. bilirubin of 3.4 all consistent with sepsis. He received Zosyn and was taken to the OR for a laparoscopic appendectomy. He was found to have a gangrenous retrocecal appendix. He was kept on the Zosyn post operatively. He fever resolved and his other labs improved. Currently he is eating well, feels well, passing gas and wants to go home. His AST and ALT have gone up. We will send him home on oral antibiotics with plan to see him next week and recheck his labs. He is in good condition. Brief History: See above narrative. - Discharge Data Discharge Date: 08/14/16 Discharge Disposition: Home, Self-Care 01 Condition: Good - Discharge Diagnosis/Problem(s) (1) Sepsis SNOMED Code(s): 07406989 ICD Code: A41.9 - SEPSIS, UNSPECIFIED ORGANISM Status: Acute Current Visit: Yes Qualifiers: Sepsis type: sepsis due to unspecified organism Qualified Code(s): A41.9 - Sepsis, unspecified organism - Patient Summary/Data Operative Procedure(s) Performed: See above narrative. Hospital Course: See above narrative. - Patient Instructions Diet: Usual Diet as Tolerated Activity, Other: Avoid activity that causes discomfort Driving, Other: Do not drive while taking narcotic pain medication Showering/Bathing: May Shower, No Tub Bathing/Swimming Notify Provider of: Fever, Increased Pain, Swelling and Redness, Drainage, Nausea and/or Vomiting - Discharge Plan Prescriptions/Med Rec: Amoxicillin/Potassium Clav [Augmentin 875-125 Tablet] 1 each PO BID #10 tablet oxyCODONE 5 - 10 mg PO Q4H PRN #30 tablet PRN Reason: Abdominal Pain Home Medications: Home Meds Metoprolol Succinate 100 mg PO BID 08/12/16 [History] Multivitamin [Multi-Vitamin Daily] 1 tab PO DAILY 08/12/16 [History] Amoxicillin/Potassium Clav [Augmentin 875-125 Tablet] 1 each PO BID #10 tablet 08/14/16 [Rx] oxyCODONE 5 - 10 mg PO Q4H PRN #30 tablet 08/14/16 [Rx] Forms: ED Department Discharge Referrals: PCP,None [Primary Care Provider] - Rocael Alvarenga MD [Physician] - (See me in clinic Sunday, August 21, 2016 for check and blood work (CMP, CBC). ) - Discharge Summary/Plan Comment DC Time >30 min.: Yes Discharge Summary/Plan Comment: See above narrative. - Patient Data Vitals - Most Recent: Last Vital Signs Temp 98.5 F 08/14/16 08:02 Pulse 62 08/14/16 08:05 Resp 18 08/14/16 08:02 BP 141/89 H 08/14/16 08:05 Pulse Ox 98 08/14/16 10:00 Weight - Most Recent: 227 lb I&O - Last 24 hours: Intake & Output 08/13/16 08/14/16 08/14/16 22:59 06:59 14:59 Intake Total 1853 320 Output Total 875 775 700 Balance 337 -026 -852 Lab Results - Last 24 hrs: Laboratory Results - last 24 hr 08/14/16 08/14/16 Range/Units 06:10 06:10 WBC 11.6 H (4.5-11.0) K/uL RBC 4.79 (4.30-5.90) M/uL Hgb 14.8 (12.0-15.0) g/dL Hct 46.3 (40.0-54.0) % MCV 97 (80-98) fL MCH 31 (27-31) pg MCHC 32 (32-36) % Plt Count 51 L (150-400) K/uL Sodium 139 L (140-148) mmol/L Potassium 4.5 (3.6-5.2) mmol/L Chloride 104 (100-108) mmol/L Carbon Dioxide 31 (21-32) mmol/L Anion Gap 8.5 (5.0-14.0) mmol/L BUN 22 H (7-18) mg/dL Creatinine 1.2 (0.8-1.3) mg/dL Est Cr Clr Drug Dosing 71.35 mL/min Estimated GFR (MDRD) > 60 (>60) Glucose 101 (74-106) mg/dL Calcium 8.6 (8.5-10.1) mg/dL Total Bilirubin 1.3 H (0.2-1.0) mg/dL AST 119 H D (15-37) U/L ALT 185 H (12-78) U/L Alkaline Phosphatase 98 (46-116) U/L Total Protein 6.3 L (6.4-8.2) g/dL Albumin 2.6 L (3.4-5.0) g/dL Globulin 3.7 H (2.3-3.5) g/dL Albumin/Globulin Ratio 0.7 L (1.2-2.2) Med Orders - Current: Current Medications Lactated Ringer's (Ringers, Lactated) 1,000 mls @ 250 mls/hr IV ASDIRECTED [facility] Piperacillin/Tazobactam/ (Dextrose 3.375 gm/ Premix) 50 mls @ 100 mls/hr IV Q6H [facility] Last Admin: 08/14/16 08:05 Dose: 100 mls/hr Potassium Chloride/Dextrose/Sod Cl (D5 1/2 Ns W/ 20 Meq/L Kcl) 1,000 mls @ 25 mls/hr IV ASDIRECTED [facility] Metoprolol Succinate (Toprol Xl) 100 mg PO BID [facility] Last Admin: 08/14/16 08:05 Dose: 100 mg Multivitamins/Minerals (Thera M Plus) 1 tab PO DAILY [facility] Last Admin: 08/14/16 08:04 Dose: 1 tab Naloxone HCl (Narcan) 0.1 mg IVPUSH Q5M PRN PRN Reason: Respiratory Distress Ondansetron HCl (Zofran) 4 mg IVPUSH Q6H PRN PRN Reason: Nausea/Vomiting Last Admin: 08/14/16 02:40 Dose: 4 mg Oxycodone HCl (Oxycodone) 5 - 10 mg PO Q4H PRN PRN Reason: Pain Last Admin: 08/14/16 09:57 Dose: 5 mg Discontinued Medications Hydrocodone Bitart/Acetaminophen ([place] 325-5 Mg) 1 tab PO Q4H PRN PRN Reason: Pain Bupivacaine HCl (Marcaine 0.5%) Confirm Administered Dose 50 ml .ROUTE .STK-MED ONE Stop: 08/12/16 08:47 Last Admin: 08/12/16 10:06 Dose: 10 ml Dexamethasone (Dexamethasone) Confirm Administered Dose 4 mg .ROUTE .STK-MED ONE Stop: 08/12/16 09:22 Fentanyl (Sublimaze) Confirm Administered Dose 250 mcg .ROUTE .STK-MED ONE Stop: 08/12/16 09:21 Fentanyl (Sublimaze) Confirm Administered Dose 100 mcg .ROUTE .STK-MED ONE Stop: 08/12/16 10:30 Glycopyrrolate () Confirm Administered Dose 1 mg .ROUTE .STK-MED ONE Stop: 08/12/16 09:22 Hydromorphone HCl (Dilaudid) 1 mg IVPUSH ONETIME ONE Stop: 08/12/16 07:17 Last Admin: 08/12/16 09:25 Dose: Not Given Hydromorphone HCl (Dilaudid Fastener Sewing Machine Operator 15 Mg In Ns 30 Ml) 0 mg IV ASDIRECTED PRN; Protocol PRN Reason: Pain Last Admin: 08/12/16 09:03 Dose: 0.3 mg Sodium Chloride (Normal Saline) 1,000 mls @ 500 mls/hr IV ASDIRECTED [facility] Last Admin: 08/12/16 05:03 Dose: 500 mls/hr Piperacillin Sod/Tazobactam (Sod 4.5 gm/ Sodium Chloride) 100 mls @ 200 mls/hr IV NOW STA Stop: 08/12/16 07:33 Last Admin: 08/12/16 14:33 Dose: Not Given Piperacillin Sod/Tazobactam (Sod 4.5 gm/ Sodium Chloride) 100 mls @ 200 mls/hr IV ONETIME ONE Stop: 08/12/16 07:59 Last Admin: 08/12/16 07:41 Dose: 200 mls/hr Lactated Ringer's (Ringers, Lactated) Confirm Administered Dose 1,000 mls @ as directed .ROUTE .STK-MED ONE Stop: 08/12/16 09:54 Potassium Chloride/Dextrose/Sod Cl (D5 1/2 Ns W/ 20 Meq/L Kcl) 1,000 mls @ 150 mls/hr IV ASDIRECTED [facility] Last Admin: 08/13/16 10:16 Dose: 150 mls/hr Piperacillin/Tazobactam/ (Dextrose 3.375 gm/ Premix) 50 mls @ 100 mls/hr IV Q6H [facility] Stop: 08/13/16 02:29 Last Admin: 08/13/16 02:29 Dose: 100 mls/hr Lidocaine/Epinephrine (Xylocaine 1% With Epinephrine 1:100,000) Confirm Administered Dose 50 ml .ROUTE .STK-MED ONE Stop: 08/12/16 08:47 Last Admin: 08/12/16 10:07 Dose: 10 ml Metoprolol Succinate (Toprol Xl) 100 mg PO ONETIME ONE Stop: 08/12/16 08:24 Last Admin: 08/12/16 09:18 Dose: 50 mg Metoprolol Succinate (Toprol Xl) 50 mg PO ONETIME ONE Stop: 08/12/16 09:23 Last Admin: 08/12/16 09:24 Dose: Not Given Metoprolol Tartrate (Lopressor) 50 mg PO ONETIME ONE Stop: 08/12/16 09:07 Last Admin: 08/12/16 14:33 Dose: Not Given Neostigmine Methylsulfate (Neostigmine) Confirm Administered Dose 5 mg .ROUTE .STK-MED ONE Stop: 08/12/16 09:22 Ondansetron HCl (Zofran) 4 mg IVPUSH ONETIME ONE Stop: 08/12/16 05:01 Last Admin: 08/12/16 05:04 Dose: 4 mg Ondansetron HCl (Zofran) Confirm Administered Dose 4 mg .ROUTE .STK-MED ONE Stop: 08/12/16 09:22 Propofol (Diprivan 20 Ml) Confirm Administered Dose 200 mg .ROUTE .STK-MED ONE Stop: 08/12/16 09:22 Rocuronium [place] (Zemuron) Confirm Administered Dose 50 mg .ROUTE .STK-MED ONE Stop: 08/12/16 09:22 *Q Meaningful Use (DIS) - VTE *Q VTE Criteria *Q: - Stroke *Q Stroke Criteria *Q: - AMI *Q AMI Criteria *Q:
== END 2016-08-14 12:54 | disposition home or self-care (01) | DRG 853 ==
LOC: JP.ED 04:27 → JP.SDS 08:14 → JP.2SS 11:40
PROVIDERS: ADMIT Surgery; ATTEND Surgery
PROC: 0DTJ4ZZ Resection of Appendix, Percutaneous Endoscopic Approach (ICD-10-PCS; principal; 2016-08-12)
DX: A41.9 Sepsis, unspecified organism (principal); K35.3 Acute appendicitis with localized peritonitis; N17.9 Acute kidney failure, unspecified; R10.9 Unspecified abdominal pain; R11.2 Nausea with vomiting, unspecified; Z96.649 Presence of unspecified artificial hip joint
CPT/HCPCS: 36415; 71010 ×2; 74176; 80053; 83605; 85025; 87040 ×2; 87077; 88304; 93005; 93010; 96361; 96365; 96375; 99285; A9270; J1100; J1170; J2405 ×2; J2543; J2704; J3010 ×2; J7030; J7040; J7120; 81001; 85027; 94762; J3480

== ENCOUNTER 2020-12-17 09:56 | Day surgery (SDC) | payer MEDICARE ==
[~2020-12-17 09:56] MED LIST: Bupivacaine 0.5% 50 ML MDV ONE; Lidocaine 1% with EPINEPHrine 1:100,000 50 ML MDV ONE; Midazolam 1 MG/ML 2 ML SDV ONE; Propofol 200 MG/20 ML SDV ONE; fentaNYL 100 MCG/2 ML SDV ONE
[2020-12-17] MEDS ORDERED: Sodium Chloride 0.9% 1,000 ML IV SCH (10:45)
[2020-12-17] MEDS ORDERED: ceFAZolin 2 GM in Premix Bag 1 BAG IV ONE (11:20)
--- NOTE | 2020-12-17 13:43 | OR ---
DATE OF PROCEDURE: 12/17/2020 SURGEON: Desmond Greene MD PROCEDURE: Left subclavian Port-A-Cath placement. COMPLICATIONS: None. SCHOOL EXAMINER: None. ANESTHESIA: MAC/Local. RISKS: Risks, benefits, alternatives, and limitations including, but not limited to infection, bleeding, pneumothorax, chronic wounds, chronic pain, requirement for reoperation, and other risks not listed here were explained to the patient and they wished to proceed. PROCEDURE IN DETAIL: The patient was placed in the left supine position. Left subclavian vein was identified. This was accessed on the first pass. This was accessed via micropuncture needle kit. This was then exchanged for a 35,000th wire. This using intraoperative fluoroscopy is noted to cross the midline. This was then exchanged via the Seldinger technique for a wire through the dilator. This was placed in the superior vena cava. This was cut to length. The locking mechanism was then used as the tube was advanced onto the port. The port was sutured into place in 3 locations. The Kay needle was used to test the device, which blood was noted to be flushed and returned. The wounds were closed with 3-0 Vicryl and 4-0 Vicryl in interrupted running fashion. Dermabond was applied. The patient tolerated procedure well. Desmond Greene MD /[id number]
[2020-12-17 13:57] VITALS: BP 143/92; PULSE 68
--- NOTE | 2020-12-17 14:21 | CR ---
CHEST: Portable 12/17/2020 at 1:24 PM CLINICAL HISTORY:Central line placement COMPARISON:CT 11/14/2020 FINDINGS: Patient has an Vieymb-y-Weyl catheter placement left subclavian approach. Tip is in the superior vena cava, brachiocephalic junction. There is no evidence of pneumothorax. Patient has multiple pulmonary nodules seen on the prior CT. Impression: Placement of left subclavian Yxvhwe-k-Onyi catheter. No pneumothorax
== END 2020-12-17 14:24 | disposition home or self-care (01) ==
LOC: JP.SDS 09:56
PROVIDERS: ATTEND Surgery
DX: C64.9 Malignant neoplasm of unspecified kidney, except renal pelvis (principal); R91.8 Other nonspecific abnormal finding of lung field; I10 Essential (primary) hypertension; Z88.8 Allergy status to other drugs, medicaments and biological substances
CPT/HCPCS: 71045; 71045-26; 77001; C1788; C1894; J0690; J1642; J2250; J2704; J3010; J3490; J7030